=== PATIENT | female | born 1995 ===

== ENCOUNTER 2017-03-14 20:09 | Emergency (ER) | payer OTHER, SELFPAY ==
[2017-03-14 20:09] VITALS: BMI 40.3
[2017-03-14 20:45] VITALS: BP 127/74; PULSE 75; RESP 16; TEMP 98.3; O2SAT 99
--- NOTE | 2017-03-14 21:40 | ED PDOC ---
Upper Extremity Pain/Injury Time Seen by Provider: 03/14/17 20:24 Chief Complaint (Nursing): Finger,Hand,&Wrist Chief Complaint (Provider): Left wrist pain History Per: Patient History/Exam Limitations: no limitations Onset/Duration Of Symptoms: Days (x1 week) Current Symptoms Are (Timing): Still Present Quality: "Pain" Exacerbating Factor(s): Movement Additional Complaint(s): John Gross is a 21 year old female, with a past medical history of PCOS, who presents to the emergency department complaining of left wrist pain onset for x1 week. Patient had a splint in place and states her wrist was injured after lifting a heavy bag. She has had multiple sprains in the past due to sports. She took ibuprofen 600 mg today with no relief. Patient is right hand dominant. She denies any other medical complaints. PMD: None provided. Past Medical History Reviewed: Historical Data, Nursing Documentation, Vital Signs Vital Signs: Last Vital Signs Temp 98.3 F 03/14/17 20:42 Pulse 75 03/14/17 20:42 Resp 16 03/14/17 20:42 BP 127/74 03/14/17 20:42 Pulse Ox 99 03/14/17 20:42 - Medical History PMH: Migraine Denies: Chronic Kidney Disease Other PMH: PCOS - Surgical History Surgical History: No Surg Hx - Family History Family History: States: Unknown Family Hx - Immunization History Hx Tetanus Toxoid Vaccination: No Hx Influenza Vaccination: No Hx Pneumococcal Vaccination: No - Home Medications Home Medications: Ambulatory Orders Medication Instructions Recorded Desogestrel-Ethinyl Estradiol 1 tab PO DAILY 08/25/16 [Enskyce 0.15 mg-0.03 mg] Ibuprofen [Motrin] 600 mg PO Q6 #20 tab 03/14/17 - Allergies Allergies/Adverse Reactions: Allergies Allergy/AdvReac Type Severity Reaction Status Date / Time No Known Allergies Allergy Verified 03/14/17 20:42 Review of Systems ROS Statement: Except As Marked, All Systems Reviewed And Found Negative Musculoskeletal: Positive for: Arm Pain (left wrist) Physical Exam - Reviewed Nursing Documentation Reviewed: Yes Vital Signs Reviewed: Yes - Physical Exam Appears: Positive for: Non-toxic Head Exam: Positive for: ATRAUMATIC, NORMAL INSPECTION, NORMOCEPHALIC Skin: Positive for: Normal Color, Warm, Dry Eye Exam: Positive for: Normal appearance Neck: Positive for: Normal, Painless ROM, Supple Respiratory: Negative for: Respiratory Distress Extremity: Positive for: Normal ROM, Tenderness (left wrist), Other (Radial pulse 2+. Distal sensation intact). Negative for: Deformity, Swelling (left wrist no edema no ecchymosis) Neurologic/Psych: Positive for: Alert, Oriented - ECG O2 Sat by Pulse Oximetry: 99 (RA) Pulse Ox Interpretation: Normal Medical Decision Making Medical Decision Making: Initial Impression: wrist pain Initial Plan: --Motrin tab 600 mg PO --Wrist, left 3 views [RAD] --reevaluation XR: NAd, as read by OLIMPIA MANLEY therapy advised Pt placed in metacarpal splint for comfort ~ Scribe Attestation: Documented by Jd Carroll, acting as a scribe for Jasmin Hicks PA-C. Provider Scribe Attestation: All medical record entries made by the Scribe were at my direction and personally dictated by me. I have reviewed the chart and agree that the record accurately reflects my personal performance of the history, physical exam, medical decision making, and the department course for this patient. I have also personally directed, reviewed, and agree with the discharge instructions and disposition. Disposition - Clinical Impression Clinical Impression: Wrist pain - Patient ED Disposition Is Patient to be Admitted: No - Disposition Referrals: Marti Malhotra MD [Staff Provider] - Disposition: Routine/Home Disposition Time: 22:24 Condition: STABLE Prescriptions: Ibuprofen [Motrin] 600 mg PO Q6 #20 tab Instructions: Wrist Injury (ED) Forms: [facility] ([place]), [facility] ED School/Work Excuse - POA Present On Arrival: None
--- NOTE | 2017-03-15 09:19 | RAD ---
PROCEDURE: Left Wrist Radiographs. HISTORY: pain COMPARISON: None. FINDINGS: BONES: No acute fracture. JOINTS: Unremarkable. SOFT TISSUES: Normal. OTHER FINDINGS: None. IMPRESSION: No demonstrated fracture or dislocation.
== END 2017-03-14 22:20 | disposition home or self-care (01) ==
LOC: H.ER 20:09
DX: M25.532 Pain in left wrist (principal); E28.2 Polycystic ovarian syndrome

== ENCOUNTER 2017-03-18 19:16 | Emergency (ER) | payer OTHER, SELFPAY ==
[2017-03-18 19:16] VITALS: BMI 40.3
[2017-03-18 19:21] VITALS: BP 149/78; PULSE 76; RESP 18; TEMP 98.6; O2SAT 99
--- NOTE | 2017-03-18 20:07 | ED PDOC ---
Upper Extremity Pain/Injury Time Seen by Provider: 03/18/17 19:27 Chief Complaint (Nursing): Finger,Hand,&Wrist Chief Complaint (Provider): Left Wrist Pain History Per: Patient History/Exam Limitations: no limitations Onset/Duration Of Symptoms: Days (x1.5 weeks) Current Symptoms Are (Timing): Still Present Quality: "Pain" Pain Scale Rating Of: 10 Additional Complaint(s): 21 year old female presents to the ED complaining of left wrist pain x1.5 weeks. The patient reports that the pain began suddenly when she lifted a heavy plastic bag using her left hand. She states that the pain is localized to the wrist but radiates to the elbow and down to the fingers. The patient reports that she was seen here in the emergency department on the 14 of March and had an Xray performed which was negative. She states that she has been taking ibuprofen for pain relief. Patient further reports that over the past 3 days she has been having intermittent numbness to the distal parts of her 2nd , 3rd and 4th finger and the pain has been worsening despite medication. She also reports that she tried taking one of her friend's flexeril but that also offered no relief. Past Medical History Reviewed: Historical Data, Nursing Documentation, Vital Signs Vital Signs: Last Vital Signs Temp 98.6 F 03/18/17 19:18 Pulse 76 03/18/17 19:18 Resp 18 03/18/17 19:18 BP 149/78 03/18/17 19:18 Pulse Ox 99 03/18/17 19:18 - Medical History PMH: Migraine Denies: Chronic Kidney Disease Other PMH: PCOS - Surgical History Surgical History: No Surg Hx - Family History Family History: States: Unknown Family Hx - Immunization History Hx Tetanus Toxoid Vaccination: No Hx Influenza Vaccination: No Hx Pneumococcal Vaccination: No - Home Medications Home Medications: Ambulatory Orders Medication Instructions Recorded Desogestrel-Ethinyl Estradiol 1 tab PO DAILY 08/25/16 [Enskyce 0.15 mg-0.03 mg] Ibuprofen [Motrin] 600 mg PO Q6 #20 tab 03/14/17 traMADol [Ultram] 50 mg PO TID PRN #15 tab 03/18/17 - Allergies Allergies/Adverse Reactions: Allergies Allergy/AdvReac Type Severity Reaction Status Date / Time No Known Allergies Allergy Verified 03/18/17 19:21 Review of Systems ROS Statement: Except As Marked, All Systems Reviewed And Found Negative Constitutional: Negative for: Fever, Chills Musculoskeletal: Positive for: Other (left wrist pain) Skin: Negative for: Lesions Physical Exam - Reviewed Nursing Documentation Reviewed: Yes Vital Signs Reviewed: Yes - Physical Exam Appears: Positive for: Non-toxic, In Acute Distress Head Exam: Positive for: ATRAUMATIC, NORMOCEPHALIC Skin: Positive for: Warm, Dry Extremity: Positive for: Other (LEFT upper extremity: No deformity, no swelling , ttp distal forearm ulnar and radial sides, light touch intact in all nerve distributions, thumb abduction opposition and finger abduction intact, <2 sec CR , 2+ radial pulse.) Neurologic/Psych: Positive for: Alert. Negative for: Motor/Sensory Deficits - ECG O2 Sat by Pulse Oximetry: 99 (RA) Pulse Ox Interpretation: Normal Medical Decision Making Medical Decision Makin21 year old female presenting with wrist strain and intermittent parasthesias New molded volar splint applied by computer field technician and patient is in sling. Patient will be prescribed tramadol as well and strongly emphasize need for follow up with orthopedist Neurovascularly intact after placement Documented by Laury Templeton acting as a scribe for Jasmin Baron MD. All medical record entries made by the Scribe were at my direction and personally dictated by me. I have reviewed the chart and agree that the record accurately reflects my personal performance of the history, physical exam, medical decision making, and the department course for this patient. I have also personally directed, reviewed, and agree with the discharge instructions and disposition. Disposition - Clinical Impression Clinical Impression: Wrist strain - Disposition Referrals: Marti Malhotra MD [Staff Provider] - (FOLLOW UP WITH ORTHOPEDIST SOON POSSIBLE) Disposition: Routine/Home Disposition Time: 19:40 Condition: STABLE Additional Instructions: FOLLOW UP WITH ORTHOPEDIST SOON POSSIBLE MAINTAIN SPLINT AND SLING UNTIL YOU FOLLOW UP WITH ORTHOPEDIST CONTINUE IBUPROFEN PRESCRIBED. TAKE TRAMADOL FOR SEVERE PAIN ONLY. Prescriptions: traMADol [Ultram] 50 mg PO TID PRN #15 tab PRN Reason: SEVERE PAIN ONLY Instructions: Narcotic Pain Management (ED), Splint Care (ED), Wrist Sprain (ED ) Forms: [facility] ([place]), [facility] ED School/Work Excuse
== END 2017-03-18 20:27 | disposition home or self-care (01) ==
LOC: H.ER 19:16
DX: S63.502A Unspecified sprain of left wrist, initial encounter (principal); X50.9XXA Other and unspecified overexertion or strenuous movements or postures, initial encounter; Y92.89 Other specified places as the place of occurrence of the external cause; E28.2 Polycystic ovarian syndrome